=== PATIENT | male | born 1965 | race Caucasian/White ===

== ENCOUNTER 2022-06-17 14:45 | Emergency (ER) | payer BC, SELFPAY ==
[2022-06-17] VITALS (11 sets, daily range): BP systolic 107–170; BP diastolic 85–120; PULSE 77–134; RESP 14–21; TEMP 36.8; O2SAT 90–97
--- NOTE | 2022-06-17 14:51 | XRR_ITS ---
PROCEDURE INFORMATION: Exam: XR Chest Exam date and time: 06/17/2022 3:13 PM Age: 57 years old Clinical indication: Other: Chest pain; Additional info: Cp TECHNIQUE: Imaging protocol: Radiologic exam of the chest. Views: 1 view. COMPARISON: CT abdomen pelvis w con* [id number] 06/18/2018 1:10 PM FINDINGS: Lungs: Unremarkable. No consolidation. Pleural spaces: Unremarkable. No pleural effusion. No pneumothorax. Heart/Mediastinum: Unremarkable. No cardiomegaly. Bones/joints: Unremarkable. XR/XR chest 1V portable [id number] IMPRESSION: No acute findings.
--- NOTE | 2022-06-17 14:51 | ECG_ITS ---
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 Measurements Intervals Clay Rate: 116 P: 38 MI: 120 QRS: 166 QRSD: 90 T: 4 QT: 317 QTc: 440 Interpretive Statements SINUS TACHYCARDIA INDETERMINATE AXIS PATTERN CONSISTENT WITH PULMONARY DISEASE No previous ECG available for comparison Electronically Signed On 06-18-2022 6:19:49 CHRISTIAN EDUCATION DIRECTOR by Billy Garner M.D. [id number]
--- NOTE | 2022-06-17 15:00 | PC.NURSE ---
PT PLACED ON CONTIUOUS NIBP, SPO2, AND CM
--- NOTE | 2022-06-17 15:05 | ED_ITS ---
HPI - Chest Pain General: Chief Complaint: Chest Pain Stated Complaint: chest pain Time Seen by Provider: 06/17/22 14:51 Source: patient Mode of arrival: ambulatory Limitations: no limitations History of Present Illness: 57-year-old male states has been having chest pain today since noon he states it is a dull ache in the center of his chest radiates to both arms states he had a little nausea earlier as well. He denies any fever he states he has had a chronic cough for 20 years but no change in that. Denies any vomiting or diarrhea he states his pain is currently a 4 out of 10. Denies any worsening or improving factors Associated symptoms: Reports nausea; Deny abdominal pain, dyspnea, fever(s) or vomiting Review of Systems Const: Denies: fever(s), chills, body aches or change in appetite Eyes: Denies: blurry vision or eye discomfort ENMT: Denies: throat pain or dental pain Card: Reports: chest pain Resp: Denies: dyspnea GI: Reports: nausea; Denies: abdominal pain, vomiting or diarrhea : Denies: dysuria Musc: Denies: neck pain or back pain Skin/Breast: Denies: rash Neuro: Denies: headache(s) Psych: Denies: depression Sergo/Lymph: Denies: easy bruising All/Imm: Denies: urticaria PFSH ED PFSH: Medical History No pertinent past medical history Social History Smoking and tobacco status: never smoked Alcohol intake: current Alcohol intake frequency: few times a month Physical Exam Const: COMMON NORMALS: no acute distress, patient oriented x3 and healthy appearing HENMT: COMMON NORMALS: normocephalic and atraumatic HEAD & SCALP: normocephalic and atraumatic Eye: COMMON NORMALS: Equal, round and reactive pupils present and EOMs intact bilaterally PUPIL: Yes Equal, round and reactive pupils present Neck/C-Spine: COMMON NORMALS: full ROM and supple Chest: COMMONS NORMALS: normal inspection of the chest and normal palpation of entire chest wall Resp: COMMON NORMALS: normal respiratory effort, No retractions, No use of accessory muscles and clear to auscultation bilaterally AUSCULTATION: clear to auscultation bilaterally Cardio: COMMON NORMALS: regular rhythm and No murmurs present (Cardio) RATE: tachycardic RHYTHM: regular rhythm GI: COMMON NORMALS: Normal to inspection, nondistended, normoactive bowel sounds present, Soft to palpation, non-tender and no masses PALPATION: Yes Soft to palpation Extremity: COMMON NORMALS: normal to inspection and full ROM Neuro: COMMON NORMALS: patient oriented x3, moves all extremities and no focal motor deficits Psych: COMMON NORMALS: mental status grossly normal, Normal thought process present and cooperative THOUGHT PROCESS: Normal thought process present Skin: COMMON NORMALS: no rashes or lesions noted and no wounds GENERAL SKIN EXAM: no rashes or lesions noted Course Vital Signs: Vital signs: Vital Signs Temperature 98.3 F 06/17/22 14:50 Pulse Rate 85 06/17/22 17:45 Respiratory Rate 18 06/17/22 17:45 Blood Pressure 155/103 06/17/22 17:45 Pulse Oximetry 97 06/17/22 17:45 Oxygen Delivery Me thod 06/17/22 14:50 MDM - Chest Pain Medical Decision Making Patient presents with chest pain is atypical in nature he states the pain is worse when he coughs his initial troponin here is normal EKG was normal I spoke to him at length he would like to go home I feel he is stable to go home after second troponin. We will check the 2-hour troponin if normal likely discharge Patient's urine troponin is normal he is chest pain-free he would like to go ho [place] I feel he is stable for discharge his pain is likely from chest wall from coughing his EKG his troponins are normal we will start him on blood pressure medicine for his hypertension we will get him follow-up with cardiology he is return if worsening he understands agrees to plan. Lab Data 06/17/22 15:22 06/17/22 16:07 Radiology Impressions Chest X-Ray 06/17/22 14:51 IMPRESSION: No acute findings. Chest CTA 06/17/22 15:53 IMPRESSION: No pulmonary embolism. Laboratory Results WBC 9.1 10^3/uL (4.0-10.0) 06/17/22 15:22 RBC 5.18 10^6/uL (4.1-5.3) 06/17/22 15:22 Hgb 19.4 g/dL (11.7-16.6) H 06/17/22 15: Hct 55.5 % (42.0-52.0) H 06/17/22 15: MCV 107.1 fl (80-94) H 06/17/22 15: MCH 37.5 pg (28.0-34.0) H 06/17/22 15: MCHC 35.0 g/dL (30.0-36.0) 06/17/22: RDW 12.9 % (12.1-15.1) 06/17/22 15: Plt Count 247 10^3/cmm (130-400) 06/17/22: MPV 10.8 fL (7.4-10.4) H 06/17/22: Neut % (Auto) 81.1 % 06/17/22: Lymph % (Auto) 10.6 % 06/17/22: Fountain % (Auto) 6.8 % 06/17/22: Eos % (Auto) 0.9 % 06/17/22: Baso % (Auto) 0.4 % 06/17/22: Neut # (Auto) 7.36 10^3/uL (1.8-7.7) 06/17/22: Lymph # (Auto) 1.0 10^3/uL (0.8-4.8) 06/17/22: Fountain # (Auto) 0.6 10^3/uL (0.2-0.9) 06/17/22: Eos # (Auto) 0.1 10^3/uL (0.0-0.8) 06/17/22: Baso # (Auto) 0.0 10^3/uL (0.0-0.1) 06/17/22: Nucleated RBC % (auto) 0 % 06/17/22: Nucleated RBCs # 0.0 /100WBC 06/17/22 15: D-Dimer 0.63 ug/mIFEU (0-0.59) H 06/17/22 15: Sodium 137 mmol/L (136-145) 06/17/22 16:07 Potassium 4.4 mmol/L (3.5-5.1) 06/17/22 16:07 Chloride 102 mmol/L (98-107) 06/17/22 16:07 Carbon Dioxide 21 mmol/L (22-29) L 06/17/22 16:07 Anion Gap 18.4 (5-19) 06/17/22 16:07 BUN 11 mg/dL (6-20) 06/17/22 16:07 Creatinine 1.1 mg/dL (0.7-1.2) 06/17/22 16:07 GFR Calculation 68.5 mL/min (90-130) L 06/17/22 16:07 Glucose 108 mg/dL (65-115) 06/17/22 16:07 Calculated Osmolality 284 mOsm/kg (285-295) L 06/17/22 16:07 Calcium 9.3 mg/dL (8.5-10.5) 06/17/22 16:07 Total Bilirubin 0.7 mg/dL (0.15-1.2) 06/17/22 16:07 AST 56 U/L (0-40) H 06/17/22 16:07 ALT 58 U/L (0-41) H 06/17/22 16:07 Alkaline Phosphatase 84 U/L (40-130) 06/17/22 16:07 Troponin T Baseline 11 ng/L (0-15) 06/17/22 15:22 Troponin T 120 Minute 13.78 ng/L (0-15) 06/17/22 17:12 Total Protein 7.1 g/dL (6.6-8.7) 06/17/22 16:07 Albumin 4.1 g/dL (3.5-5.2) 06/17/22 16:07 Globulin 3.0 g/dL (1.3-4.6) 06/17/22 16:07 EKG Data EKG 1: I personally reviewed and interpreted this EKG as follows: EKG interpretation date: 06/17/22 EKG interpretation time: 14:55 Interpretation: sinus tach hr [address] or t wave abnormalities qrs 90 qtc 386 Discharge Plan Discharge Patient Disposition: Home Clinical Impression: Chest pain, Hypertension Condition: Stable Prescriptions: New metoprolol succinate 25 mg tablet extended release 24 hr 25 mg PO DAILY Qty: 30 0RF hydrocodone-acetaminophen 5-325 mg tablet 1 tab PO Q6H PRN (Reason: pain) Qty: 14 0RF Discharge Orders: Discharge ED (Routine); Ordered 06/17/22 Ordered By: Aly Blank Referrals: Kellen Quijano MD [Physician] - 1-3 days Karan Grimaldo MD [Family Provider] - Discharge Diet: Advance as tolerated Discharge Activity: Resume usual activity Patient Instructions: Chest Pain (ED), Hypertension (ED) Coding Level of Care Code ED Warehouse Operations Associate for Chg Fwd Exam Comprehensive
[2022-06-17] MEDS: aspirin 81 mg Chew Tablet 324 MG PO (15:21)
[2022-06-17] MEDS: nitroglycerin 0.4 mg sublingual Tablet SUBLINGUAL (15:32)
[2022-06-17 15:41] LABS: Basophils % 0.4 %; Eosinophils # 0.1 10^3/uL (0.0-0.8); Eosinophils % 0.9 %; Hematocrit 55.5 % (42.0-52.0); Hemoglobin 19.4 g/dL (11.7-16.6); Lymphocytes % 10.6 %; Mean Corpuscular Hemoglobin 37.5 pg (28.0-34.0); Mean Corpuscular Volume 107.1 fl (80-94); Mean Platelet Volume 10.8 fL (7.4-10.4); Monocytes # 0.6 10^3/uL (0.2-0.9); Monocytes % 6.8 %; Neutrophils # 7.36 10^3/uL (1.8-7.7); Neutrophils % 81.1 %; Nucleated Red Blood Cells % 0 %; Platelet Count 247 10^3/cmm (130-400); Red Blood Count 5.18 10^6/uL (4.1-5.3); Red Cell Distribution Width 12.9 % (12.1-15.1); White Blood Count 9.1 10^3/uL (4.0-10.0)
[2022-06-17 15:50] LABS: D Dimer 0.63 ug/mIFEU (0-0.59)
[2022-06-17] MEDS: labetalol 5 mg/mL SDV 20mL 10 MG IVP (15:50)
[2022-06-17] MEDS: ondansetron 2 mg/ML SDV 2 mL 4 MG IVP (15:51)
--- NOTE | 2022-06-17 15:53 | CTR_ITS ---
PROCEDURE INFORMATION: Exam: CTA Chest With Contrast Exam date and time: 06/17/2022 4:28 PM Age: 57 years old Clinical indication: Shortness of breath; Additional info: SOB TECHNIQUE: Imaging protocol: Computed tomographic angiography of the chest with contrast. 3D rendering (Not supervised by radiologist): MIP and/or 3D reconstructed images were created by the technologist. Radiation optimization: All CT scans at this facility use at least one of these dose optimization techniques: automated exposure control; mA and/or kV adjustment per patient size (includes targeted exams where dose is matched to clinical indication); or iterative reconstruction. Contrast material: OMNI 350; Contrast volume: 80 ml; Contrast route: INTRAVENOUS (IV); COMPARISON: CR (CHEST, ) 06/17/2022 3:13 PM RADIATION DOSE METRICS: Total DLP (mGy-cm): 381.25 FINDINGS: Pulmonary arteries: Normal. No pulmonary emboli. Aorta: Unremarkable. No aortic aneurysm. No aortic dissection. Lungs: Calcified granulomas at the right lung base. Pleural spaces: Unremarkable. No pneumothorax. No pleural effusion. Heart: Unremarkable. No cardiomegaly. No pericardial effusion. Lymph nodes: Unremarkable. No enlarged lymph nodes. Bones/joints: Unremarkable. No acute fracture. Soft tissues: Unremarkable. CT/CT angio chest PE protcl [id number] IMPRESSION: No pulmonary embolism.
[2022-06-17 15:57] LABS: Troponin(5th) Baseline 11 ng/L (0-15)
--- NOTE | 2022-06-17 16:24 | PC.NURSE ---
PT STATES PAIN 3/10 AFTER 1 0.4MG NITRO TABLET
[2022-06-17] MEDS: iohexol 350 mg/mL 500 mL Btl (per mL) IV (16:32)
[2022-06-17 16:34] LABS: Alanine Aminotransferase 58 U/L (0-41); Albumin Level 4.1 g/dL (3.5-5.2); Alkaline Phosphatase 84 U/L (40-130); Blood Urea Nitrogen 11 mg/dL (6-20); Calcium 9.3 mg/dL (8.5-10.5); Carbon Dioxide 21 mmol/L (22-29); Chloride 102 mmol/L (98-107); Glomerular Filtration Rate 68.5 mL/min (90-130); Glucose 108 mg/dL (65-115); Osmolality Calculated 284 mOsm/kg (285-295); Sodium 137 mmol/L (136-145); Total Bilirubin 0.7 mg/dL (0.15-1.2); Total Protein 7.1 g/dL (6.6-8.7)
[2022-06-17 16:37] LABS: Anion Gap 18.4 (5-19); Potassium 4.4 mmol/L (3.5-5.1)
[2022-06-17 16:38] LABS: Aspartate Amino Transferase 56 U/L (0-40)
[2022-06-17 17:35] LABS: Troponin 5 2HR 13.78 ng/L (0-15)
[2022-06-17] MEDS: morphine 4 mg/mL SDV 1 mL IVP (17:52)
[2022-06-17 18:00] LABS: Troponin 5 2HR Delta 2.78 ABS# (0-10)
--- NOTE | 2022-06-18 09:02 | DCPLANNER ---
Addendum entered by Yue Watkins 06/19/22 14:01: case managers received the following message from heart care regarding follow up appointment: Spoke with patient. Patient stated he would see his primary care to see what they say before he makes the appt. Original Note: case managers had message to schedule a follow up appointment for patient with cardiology. case managers sent patients information to the front office staff at cardiology. Patients information will be printed and reviewed. Clinic will call patient with appointment information.
== END 2022-06-17 16:04 | disposition home or self-care (01) ==
PROVIDERS: Emergency Provider Emergency Medicine; Family Provider Family Medicine
DX: R07.9 Chest pain, unspecified (principal); I10 Essential (primary) hypertension
CPT/HCPCS: 36415; 71045; 71275; 80053; 84484; 85025; 85378; 93005; 96374; 96375; 99285; J2270; J2405; J3490; Q9967